=== PATIENT | female | born 1985 | race Caucasian/White ===

== ENCOUNTER 2024-08-03 11:10 | Emergency (ER) | payer MEDICARE, SELFPAY ==
[2024-08-03 11:12] VITALS: BP 112/75
--- NOTE | 2024-08-03 12:06 | ED.GENMED ---
History of Present Illness
General
Chief Complaint: Musculo-Skeletal Complaint
Source: patient
Exam Limitations: none
Time Seen by Provider: 08/03/24 11:37
Nursing documentation reviewed up to this point in time: agreed with
History of Present Illness
History of Present Illness:
38-year-old female presenting to the emergency department today with concerns of left-sided shoulder discomfort since yesterday has had intermittent mild discomfort to the area with movement. Very achy today increased discomfort with movement of
the shoulder itself. No fevers no redness or warmth no numbness or weakness. No traumatic injuries.
Review of Systems
Review of Systems
Allergies reviewed?: Yes
All Other Systems: ROS reviewed and negative except as documented in HPI and ROS
Phy Exam
Physical Exam
Physical Exam:
GENERAL: Alert , in no apparent distress
EYE: pupils equal and reactive
NECK: Supple, no significant adenopathy.
ENT: o/p clr, mmm.
CARDIAC: Regular rate and rhythm .
LUNGS: Clear breath sounds bilaterally, no acute respiratory distress, no wheezes/rales/rhonchi
ABDOMEN: Soft, without focal tenderness, no r/g, no cvat
NEUROLOGICAL: Alert and oriented, no focal neuro deficits
SKIN: Warm and dry, skin intact.
MUSCULOSKELETAL: Increased discomfort with flexion and abduction of the left shoulder no tenderness throughout the clavicle no palpable tenderness to the shoulder at the deltoid or humerus. No edema, well perfused.
PSYCH: Normal and appropriate interaction.
Course
Orders/Labs/Results
Orders:
Orders
08/03/24 11:15
CR Shoulder, Trauma - Left Urgent
Comment:
Reason For Exam: L shoulder pain, worse with movement
08/03/24 12:04
Acetaminophen [Tylenol] 650 mg PO NOW STA
Ibuprofen [Motrin] 600 mg PO NOW STA
08/03/24 12:12
Sling Left-Treatment ONCE
Vital Signs
Initial and Last Documented VS:
Initial Vital Signs
Temp Pulse Resp BP Pulse Ox
98.1 F 100 16 112/75 99
08/03/24 11:12 08/03/24 11:12 08/03/24 11:12 08/03/24 11:12 08/03/24 11:12
Last Documented Vital Signs
Temp Pulse Resp BP Pulse Ox
98.1 F 100 16 112/75 99
08/03/24 11:12 08/03/24 11:12 08/03/24 11:12 08/03/24 11:12 08/03/24 11:12
MDM/Problems Addressed
MDM/Problems Addressed:
38-year-old female presenting to the emergency department today for concerns of left-sided shoulder discomfort lingering over the past few months but worsening over the past day or so. X-ray without signs of acute abnormalities no evidence of joint
emergent pathology. Patient with likely strain or sprain or internal joint injury advised for orthopedic follow-up. Return precautions given.
*Critical Care Note
Total Time (30-74mins, 75-104mins- exclusive of procedures): Not Applicable
ED Attending Note
-
Portions of this chart may have been created with voice recognition software.� Occasional wrong word or��sound alike� substitutions may have occurred due to the inherent limitations of voice recognition software.
Discharge Plan
Departure
Patient Disposition: Home (Routine Discharge)
Date of Disposition: 08/03/24
Time of Disposition: 12:06
Patient with high blood pressure during this ER visit?: No
Condition: Good
Covid-19: Not Applicable
Discharge Problem:
Shoulder sprain
Instructions: Shoulder Sprain (DC)
Referrals:
Jason Perez MD [Active] - Follow up in 5-7 days
Shan Kyle MD [Family Provider] -
Activity Restrictions/Additional Instructions:
You came to the emergency department today with concerns of shoulder discomfort. Please follow closely with orthopedics. Return to the emergency department any worsening, new or concerning symptoms.
Interventions
Interventions:
*Risk Screen - Suicide Last Done: 08/03/24 11:12
*General Assessment Last Done: 08/03/24 11:12
*Neglect/Abuse Screening Last Done: 08/03/24 11:12
ED-Musculoskeletal Assessment Last Done: 08/03/24 11:43
Discharge Date and Time
Print Language: GUAMANIAN
[2024-08-03] MEDS: MOTRIN 600 MG PO (12:12)
[2024-08-03] MEDS: TYLENOL 650 MG PO (12:13)
== END 2024-08-03 12:20 | disposition home or self-care (01) ==
LOC: EMR 11:10
PROVIDERS: EMERGENCY PHYSICIAN Student in an Organized Health Care Education/Training Program; FAMILY PHYSICIAN Family Medicine
DX: S43.402A Unspecified sprain of left shoulder joint, initial encounter (principal); X58.XXXA Exposure to other specified factors, initial encounter
CPT/HCPCS: 99283; 73030